=== PATIENT | female | born 1985 | race Caucasian/White ===

== ENCOUNTER 2017-05-27 22:52 | Emergency (ER) | payer MEDICAID ==
[~2017-05-27] VITALS: Ht 157.5 cm; Wt 42.0 kg
[2017-05-27 22:58] VITALS: BP 120/72
[2017-05-27] MEDS ORDERED: MUPI22OI30 TOP (23:09)
[2017-05-27] MEDS ORDERED: SULF1TAB49 PO (23:09)
== END 2017-05-27 23:14 | disposition home or self-care (01) ==
LOC: ER 22:53
DX: L02.212 Cutaneous abscess of back [any part, except buttock and flank] (principal); L03.312 Cellulitis of back [any part except buttock and flank]; Z56.0 Unemployment, unspecified; Z79.899 Other long term (current) drug therapy; Z86.19 Personal history of other infectious and parasitic diseases
CPT/HCPCS: 99283

== ENCOUNTER 2017-07-26 20:50 | Emergency (ER) | payer MEDICAID ==
[~2017-07-26] VITALS: Ht 157.5 cm; Wt 43.6 kg
[2017-07-26 20:59] VITALS: BP 124/106
[2017-07-26] MEDS ORDERED: ketorolac trometh inj. 60 MG/2 ML VIAL IM ONE (21:25)
[2017-07-26] MEDS ORDERED: proCHLORperazine 10mg tablet PO ONE (21:25)
[2017-07-26] MEDS ORDERED: aspirin 325mg tablet PO ONE (21:25)
[2017-07-26] MEDS ORDERED: acetaminophen 325mg tablet PO ONE (21:25)
[2017-07-26] MEDS ORDERED: AMOX500C2 PO (21:29)
[2017-07-26] MEDS ORDERED: amoxicillin 250mg capsule PO ONE (21:30)
== END 2017-07-26 21:50 | disposition home or self-care (01) ==
LOC: ER 20:51
DX: H66.92 Otitis media, unspecified, left ear (principal); Z56.0 Unemployment, unspecified; Z79.899 Other long term (current) drug therapy
CPT/HCPCS: 96372; 99284; J1885; Q0164

== ENCOUNTER 2017-11-08 03:39 | Emergency (ER) | payer MEDICAID ==
[~2017-11-08] VITALS: Ht 157.5 cm; Wt 44.1 kg
[2017-11-08] MEDS ORDERED: SULF1TAB49 PO (03:57)
[2017-11-08] MEDS ORDERED: CEPH500C5 PO (03:57)
[2017-11-08 04:12] VITALS: BP 124/68
== END 2017-11-08 04:15 | disposition home or self-care (01) ==
LOC: ER 03:42
DX: L03.221 Cellulitis of neck (principal); Z56.0 Unemployment, unspecified; Z79.2 Long term (current) use of antibiotics
CPT/HCPCS: 99283

== ENCOUNTER 2018-07-05 15:04 | Emergency (ER) | payer MEDICAID ==
[~2018-07-05] VITALS: Ht 157.5 cm; Wt 40.0 kg
[~2018-07-05 15:04] MED LIST: CEPH500C5 PO
[2018-07-05 15:14] VITALS: BP 126/82
[2018-07-05] MEDS ORDERED: LIDOcaine 1% w/epiNEPHrine 1:200,000 30ml vial IM ONE (16:00)
[2018-07-05] MEDS ORDERED: TETanus/Pertussis (Acell)/Diphther VAC/PF (Tdap-Adult) 0.5ml syringe IM ONE (16:00)
[2018-07-05] MEDS ORDERED: CEPH-572 PO (16:20)
[2018-07-05] MEDS ORDERED: SULF1TAB49 PO (16:20)
== END 2018-07-05 16:28 | disposition home or self-care (01) ==
LOC: ER 15:05
DX: L02.212 Cutaneous abscess of back [any part, except buttock and flank] (principal); R10.32 Left lower quadrant pain; Z56.0 Unemployment, unspecified; Z86.14 Personal history of Methicillin resistant Staphylococcus aureus infection
CPT/HCPCS: 10060; 90471; 90715; 99283

== ENCOUNTER 2018-07-26 20:07 | Emergency (ER) | payer MEDICAID ==
[~2018-07-26] VITALS: Ht 157.5 cm; Wt 38.1 kg
[2018-07-26 20:28] VITALS: BP 149/96
[2018-07-26 20:51] LABS: CLARITY,URINE CLOUDY (Clear); COLOR,URINE YELLOW (Yellow); GLUCOSE, URINE NEGATIVE (Neg); KETONES,URINE NEGATIVE (Neg); LEUKOCYTE ESTERASE ,URINE SMALL (Neg); NITRITES, URINE NEGATIVE (Neg); OCCULT BLOOD,URINE LARGE (Neg); PROTEIN,URINE 100 mg/dl (Neg)
[2018-07-26 20:52] LABS: URINE HCG NEGATIVE (NEG)
[2018-07-26 20:58] LABS: UA COLLECTION TYPE CLN CATCH MIDSTREAM
[2018-07-26 21:00] LABS: BACTERIA,URINE FEW /HPF (Neg); RBC,URINE 50-100 /HPF (0-2); SQUAMOUS EPITHELIAL CELL,UR FEW /LPF (FEW)
[2018-07-26] MEDS ORDERED: NITR100C PO (21:02)
[2018-07-26] MEDS ORDERED: PHEN-824 PO (21:02)
== END 2018-07-26 21:18 | disposition home or self-care (01) ==
LOC: ER 20:08
DX: N39.0 Urinary tract infection, site not specified (principal); Z56.0 Unemployment, unspecified
CPT/HCPCS: 81001; 81025; 87077; 87088; 87186; 99283

== ENCOUNTER 2019-10-02 14:42 | Emergency (ER) | payer MEDICAID ==
[~2019-10-02] VITALS: Ht 157.5 cm; Wt 41.9 kg
[~2019-10-02 14:42] MED LIST changes: -CEPH500C5 PO; +NITR100C PO; +PHEN-824 PO
[2019-10-02 14:51] VITALS: BP 115/80
[2019-10-02] MEDS ORDERED: CEPH250T PO (15:47)
== END 2019-10-02 16:07 | disposition home or self-care (01) ==
LOC: ER 14:42
DX: L72.0 Epidermal cyst (principal); Z86.14 Personal history of Methicillin resistant Staphylococcus aureus infection; Z72.89 Other problems related to lifestyle; Z56.0 Unemployment, unspecified; Z79.899 Other long term (current) drug therapy
CPT/HCPCS: 99283

== ENCOUNTER 2021-01-06 16:06 | Emergency (ER) | payer MEDICAID ==
[~2021-01-06] VITALS: Ht 157.5 cm; Wt 38.6 kg
[2021-01-06 16:36] VITALS: BP 116/79
[2021-01-06] MEDS ORDERED: acetaminophen 325mg tablet PO ONE (17:10)
[2021-01-06 17:55] LABS: BASOPHILS % (AUTO) 0.2 % (0-1); EOSINOPHILS % (AUTO) 0 % (0-6); HEMATOCRIT 37.2 % (35.0-45.0); HEMOGLOBIN 12.6 g/dl (12.0-16.0); LYMPHOCYTES # (AUTO) 0.9 X10'3 (1.1-4.8); LYMPHOCYTES % (AUTO) 7.6 % (21-51); MEAN CORPUSCULAR VOLUME 91.2 FL (78-98); MEAN PLATELET VOLUME 6.8 FL (7.4-10.4); MONOCYTES # (AUTO) 0.7 X10'3 (0-0.9); MONOCYTES % (AUTO) 5.7 % (2-12); NEUTROPHILS % (AUTO) 86.5 % (42-75); PLATELET COUNT 445 X10'3 (140-440); RED BLOOD COUNT 4.08 X10'6 (4.20-5.60); RED CELL DISTRIBUTION WIDTH 12.8 % (11.5-14.5); WHITE BLOOD COUNT 11.6 X10'3 (4.5-11.0)
[2021-01-06 17:57] LABS: CLARITY,URINE CLOUDY (Clear); COLOR,URINE YELLOW (Yellow); GLUCOSE, URINE NEGATIVE (Neg); KETONES,URINE NEGATIVE (Neg); LEUKOCYTE ESTERASE ,URINE TRACE (Neg); NITRITES, URINE POSITIVE (Neg); OCCULT BLOOD,URINE NEGATIVE (Neg); PROTEIN,URINE TRACE mg/dl (Neg); UA COLLECTION TYPE CLN CATCH MIDSTREAM
[2021-01-06] MEDS ORDERED: CEPH250T PO (18:01)
[2021-01-06 18:02] LABS: BACTERIA,URINE 3+ /HPF (Neg); SQUAMOUS EPITHELIAL CELL,UR MODERATE /LPF (FEW)
[2021-01-06 18:03] LABS: MUCUS STRANDS FEW /LPF (Neg); RBC,URINE 0-2 /HPF (0-2); WBC CLUMPS,URINE FEW /HPF (NEGATIVE)
[2021-01-06 18:08] LABS: ALANINE AMINOTRANSFERASE 17 U/L (12-78); ALBUMIN 3.7 G/DL (3.4-5.0); ALBUMIN/GLOBULIN RATIO 0.8 (1.1-1.5); ALKALINE PHOSPHATASE 80 IU/L (46-116); ANION GAP 11 (8-16); ASPARTATE AMINO TRANSFERASE 16 U/L (10-37); BILIRUBIN,TOTAL 0.8 MG/DL (0.1-1.0); BLOOD UREA NITROGEN 8 MG/DL (7-18); BUN/CREATININE RATIO 8.5 (6.6-38.0); CALCIUM 8.8 MG/DL (8.5-10.1); CHLORIDE 99 MMOL/L (99-107); CREATININE 0.94 MG/DL (0.40-0.90); GLUCOSE 87 MG/DL (70-104); POTASSIUM 3.8 MMOL/L (3.5-5.1); SODIUM 135 MMOL/L (135-145); TOTAL CARBON DIOXIDE 25.1 MMOL/L (24-32); TOTAL PROTEIN 8.6 G/DL (6.4-8.2); eGFR 67 ML/MIN
== END 2021-01-06 18:07 | disposition home or self-care (01) ==
LOC: ER 16:07
DX: N39.0 Urinary tract infection, site not specified (principal); R10.13 Epigastric pain; R10.31 Right lower quadrant pain; R50.9 Fever, unspecified; R52 Pain, unspecified; Z86.14 Personal history of Methicillin resistant Staphylococcus aureus infection; Z72.89 Other problems related to lifestyle; Z56.0 Unemployment, unspecified; Z79.2 Long term (current) use of antibiotics; Z79.899 Other long term (current) drug therapy
CPT/HCPCS: 36415; 76770; 76830; 76856; 80053; 81001; 85025; 87077; 87088; 87186; 93976; 99285

== ENCOUNTER 2021-09-08 10:16 | Emergency (ER) | payer MEDICAID ==
[~2021-09-08] VITALS: Ht 157.5 cm; Wt 40.9 kg
[2021-09-08 10:29] VITALS: BP 136/84
--- NOTE | 2021-09-08 12:59 | NUR ---
DRESSING APPLIED TO LAC REPAIR LT WRIST
== END 2021-09-08 13:17 | disposition home or self-care (01) ==
LOC: ER 10:17
DX: S61.512A Laceration without foreign body of left wrist, initial encounter (principal); W45.8XXA Other foreign body or object entering through skin, initial encounter; Y93.89 Activity, other specified; Y92.89 Other specified places as the place of occurrence of the external cause; Y99.8 Other external cause status
CPT/HCPCS: 12002; 99282

== ENCOUNTER 2022-03-31 01:30 | Inpatient (IN) | payer MEDICAID ==
[~2022-03-31] VITALS: Ht 157.5 cm; Wt 45.8 kg
[2022-03-31] MEDS ORDERED: normal saline 1000ML IV soln IV ONE (01:50)
[2022-03-31] MEDS ORDERED: acetaminophen 325mg tablet PO ONE (02:00)
[2022-03-31] MEDS ORDERED: ibuprofen tablet 400 MG TABLET PO ONE (02:00)
[2022-03-31] MEDS ORDERED: ceFAZolin 1GM/D5W- ADD-VANTAGE 50 ML IV ONE (02:25)
[2022-03-31] MEDS ORDERED: CefTRIAXone/D5W-Rocephin 1gm 50 ML IV ONE (02:45)
[2022-03-31 02:48] LABS: BASOPHILS % (AUTO) 0.1 % (0-1); EOSINOPHILS % (AUTO) 0 % (0-6); HEMATOCRIT 39.5 % (35.0-45.0); HEMOGLOBIN 13.1 g/dl (12.0-16.0); LYMPHOCYTES # (AUTO) 0.5 X10'3 (1.1-4.8); LYMPHOCYTES % (AUTO) 2.3 % (21-51); MEAN CORPUSCULAR HEMOGLOBIN 31.2 PG (27.0-31.0); MEAN CORPUSCULAR HGB CONC 33.3 g/dL (33.0-36.5); MEAN CORPUSCULAR VOLUME 93.9 FL (78-98); MEAN PLATELET VOLUME 6.5 FL (7.4-10.4); MONOCYTES # (AUTO) 0.6 X10'3 (0-0.9); MONOCYTES % (AUTO) 2.6 % (2-12); NEUTROPHILS # (AUTO) 20.7 X10'3 (1.8-7.7); PLATELET COUNT 363 X10'3 (140-440); RED BLOOD COUNT 4.21 X10'6 (4.20-5.60); RED CELL DISTRIBUTION WIDTH 12.6 % (11.5-14.5); WHITE BLOOD COUNT 21.8 X10'3 (4.5-11.0)
[2022-03-31 02:59] LABS: D-DIMER 0.55 MG/L FEU (0-0.50)
[2022-03-31] MEDS ORDERED: DOXYCYCLINE 100MG CAPSULE PO STA (03:03)
[2022-03-31 03:04] LABS: ALANINE AMINOTRANSFERASE 16 U/L (12-78); ALBUMIN 3.2 G/DL (3.4-5.0); ALBUMIN/GLOBULIN RATIO 0.7 (1.1-1.5); ALKALINE PHOSPHATASE 69 IU/L (46-116); ANION GAP 12 (8-16); ASPARTATE AMINO TRANSFERASE 22 U/L (10-37); BILIRUBIN,TOTAL 0.7 MG/DL (0.1-1.0); BLOOD UREA NITROGEN 14 MG/DL (7-18); BUN/CREATININE RATIO 12.7 (6.6-38.0); CALCIUM 8.9 MG/DL (8.5-10.1); CHLORIDE 99 MMOL/L (99-107); GLUCOSE 113 MG/DL (70-104); POTASSIUM 3.8 MMOL/L (3.5-5.1); SODIUM 132 MMOL/L (135-145); TOTAL CARBON DIOXIDE 21.5 MMOL/L (24-32); TOTAL PROTEIN 7.5 G/DL (6.4-8.2); eGFR 56 ML/MIN
[2022-03-31 03:13] LABS: ETHANOL < 0.010 GM/DL (0.0-0.010); MAGNESIUM 1.7 MG/DL (1.5-2.4)
[2022-03-31 03:25] LABS: PLATELET ESTIMATE NORMAL; TOTAL CELLS COUNTED 100
--- NOTE | 2022-03-31 03:45 | NUR ---
NOTIFIED REGARDING HIGH TEMP. NO NEW ORDERS RECIEVED YET
[2022-03-31] MEDS ORDERED: iohexol 350MG/ML 100ml bottle IV ONE (03:47)
[2022-03-31] MEDS ORDERED: mag hydrox/Alum hydrox/simeth 30ml oral suspension PO PRN (04:50)
[2022-03-31] MEDS ORDERED: morphine 2 MG/ML inj. syringe IV PRN ×2 (04:50)
[2022-03-31] MEDS ORDERED: magnesium hydroxide 30ml (MOM) UD suspension PO PRN (04:50)
[2022-03-31] MEDS ORDERED: acetaminophen 325mg tablet PO PRN ×2 (04:50)
[2022-03-31] MEDS ORDERED: HYDROcodone/acetaminophen 5mg/325mg tablet PO PRN (04:50)
[2022-03-31] MEDS ORDERED: ondansetron/PF 4mg/2ml inj IV PRN (04:50)
[2022-03-31] MEDS ORDERED: HYDROcodone/acetaminophen 10/325mg tab PO PRN (04:50)
[2022-03-31] MEDS: normal saline 1000ml 1,000 ML IV SCH ×3 (05:07→17:54)
[2022-03-31] MEDS: CefTRIAXone/D5W-Rocephin 1gm 50 ML IV SCH (07:27)
[2022-03-31 07:31] LABS: URINE HCG NEGATIVE (NEG)
[2022-03-31 07:33] LABS: CLARITY,URINE SLIGHTLY CLOUDY (Clear); COLOR,URINE YELLOW (Yellow); GLUCOSE, URINE NEGATIVE (Neg); KETONES,URINE NEGATIVE (Neg); LEUKOCYTE ESTERASE ,URINE NEGATIVE (Neg); NITRITES, URINE POSITIVE (Neg); OCCULT BLOOD,URINE LARGE (Neg); PH,URINE 5.5 (4.8-8.0); PROTEIN,URINE NEGATIVE (Neg)
[2022-03-31 07:34] LABS: UA COLLECTION TYPE CLN CATCH MIDSTREAM
[2022-03-31 07:40] LABS: RBC,URINE 50-100 /HPF (0-2); WBC,URINE 0-4 /HPF (0-4)
[2022-03-31 07:41] LABS: BACTERIA,URINE FEW /HPF (Neg); MUCUS STRANDS NONE SEEN /LPF (Neg); SQUAMOUS EPITHELIAL CELL,UR FEW /LPF (FEW)
[2022-03-31 07:43] LABS: URINE AMPHETAMINE SCREEN POSITIVE (Neg); URINE BARBITUATE SCREEN NEGATIVE (Neg); URINE BENZODIAZEPINES SCREEN NEGATIVE (Neg); URINE CANNABINOID SCREEN NEGATIVE (Neg); URINE COCAINE SCREEN NEGATIVE (Neg); URINE METHADONE SCREEN NEGATIVE (Neg); URINE OPIATE SCREEN NEGATIVE (Neg); URINE PHENCYCLIDINE SCREEN NEGATIVE (Neg)
[2022-03-31] MEDS ORDERED: PERFLUTREN PROTEIN-A MICROSPHR (Optison) 0.22 MG/ML 3ML VIAL IV ONE (07:45)
[2022-03-31] MEDS: azithromycin/NS 500mg/250ml 250 ML IV SCH (08:00)
[2022-03-31 08:20] VITALS: BP 90/53
--- NOTE | 2022-03-31 08:39 | NUR ---
Patient in [facility] [id number] . I have received report from jA OWENS and had the opportunity to ask questions and assume patient care. settled pt into room. two car keys found in [place] bunch. Pt requesting pain med "shot". states she doesn't think ER really gave it to her. Reassured pt it in fact had been given. Pt c/o pain 02/13 in lung area. reassured pt that I would give pain meds when time appropriate. Addendum: 03/31/22 at 0849 by Yael Beaver RN Amended: Links added.
--- NOTE | 2022-03-31 09:01 | NUR ---
Pt sleeping no distress, Call light in reach.
[2022-03-31] MEDS: docusate sod 100mg capsule PO SCH ×2 (09:32→20:00)
[2022-03-31] MEDS: enoxaparin 40mg/0.4ml syringe SUBCUT SCH (09:33)
[2022-03-31 11:19] VITALS: BP 90/60
[2022-03-31] MEDS ORDERED: NO HOME MEDS (12:09)
--- NOTE | 2022-03-31 15:13 | NUR ---
male visitor at bedside. pt call light in reach
[2022-03-31 15:22] VITALS: BP_SYST 83; BP_SYST 99; BP_DIAS 45; BP_DIAS 60
--- NOTE | 2022-03-31 17:23 | NUR ---
MESSAGE: [id number] Maegan She is requesting pain reliever tylenol #3, She states norco makes her nauseas and morphine makes her angry Yael Nadya
[2022-03-31] MEDS ORDERED: acetaminophen w/codeine (30MG) #3 tablet PO PRN ×2 (18:10)
--- NOTE | 2022-03-31 18:27 | NUR ---
Problems reprioritized. Patient report given, questions answered & plan of care reviewed with Cesilia OWENS. Tylenol #3 given for lung pain. Pt upset over her uncle seen outside the hospital window. she wanted to give her car keys to him so he could go home. She went so far as to say she would leave AMA. I stated I could have a PCT run them out. Uncle was just picked up and pt apologized for her passionate behavior and is now settled down. call light in reach
[2022-03-31] MEDS ORDERED: temazepam 15mg capsule PO ONE (22:05)
[2022-04-01] MEDS: normal saline 1000ml 1,000 ML IV SCH (04:28)
[2022-04-01 06:00] VITALS: BP 99/51
--- NOTE | 2022-04-01 06:14 | NUR ---
Patient in room PCU 3017. I have received report from Cesilia OWENS and had the opportunity to ask questions and assume patient care. Bedside report completed. Pt sleeping no distress. Call light in reach. Addendum: 04/01/22 at 0616 by Yael Beaver RN Amended: Links added.
[2022-04-01 07:04] LABS: BASOPHILS # (AUTO) 0.1 X10'3 (0-0.2); BASOPHILS % (AUTO) 0.3 % (0-1); EOSINOPHILS # (AUTO) 0.1 X10'3 (0-0.9); EOSINOPHILS % (AUTO) 0.7 % (0-6); HEMATOCRIT 36.2 % (35.0-45.0); HEMOGLOBIN 12.1 g/dl (12.0-16.0); LYMPHOCYTES # (AUTO) 1.4 X10'3 (1.1-4.8); LYMPHOCYTES % (AUTO) 7.7 % (21-51); MEAN CORPUSCULAR HEMOGLOBIN 31.3 PG (27.0-31.0); MEAN CORPUSCULAR HGB CONC 33.4 g/dL (33.0-36.5); MEAN CORPUSCULAR VOLUME 93.9 FL (78-98); MEAN PLATELET VOLUME 7.1 FL (7.4-10.4); MONOCYTES # (AUTO) 0.5 X10'3 (0-0.9); MONOCYTES % (AUTO) 3.1 % (2-12); NEUTROPHILS # (AUTO) 15.5 X10'3 (1.8-7.7); NEUTROPHILS % (AUTO) 88.2 % (42-75); PLATELET COUNT 300 X10'3 (140-440); RED BLOOD COUNT 3.86 X10'6 (4.20-5.60); RED CELL DISTRIBUTION WIDTH 12.8 % (11.5-14.5); WHITE BLOOD COUNT 17.6 X10'3 (4.5-11.0)
--- NOTE | 2022-04-01 08:00 | NUR ---
No PIV access as Pt removed her PIV last Noc. I attempted x 2, no luck. Total of 15 attemps thus far. Will contact Nursing Fermenting Cellars Supervisor.
[2022-04-01 08:04] LABS: ANION GAP 8 (8-16); BLOOD UREA NITROGEN 11 MG/DL (7-18); BUN/CREATININE RATIO 14.5 (6.6-38.0); CALCIUM 7.8 MG/DL (8.5-10.1); CHLORIDE 110 MMOL/L (99-107); CREATININE 0.76 MG/DL (0.40-0.90); GLUCOSE 83 MG/DL (70-104); POTASSIUM 3.5 MMOL/L (3.5-5.1); SODIUM 140 MMOL/L (135-145); TOTAL CARBON DIOXIDE 21.8 MMOL/L (24-32); eGFR 86 ML/MIN
--- NOTE | 2022-04-01 08:20 | NUR ---
Nurse Cafe Or Restaurant Manager @ bedside. Attempted PIV. No access established.
--- NOTE | 2022-04-01 08:43 | NUR ---
MESSAGE: [id number] Maegan Sepsis, PNA . We can not get IV access on her. over 17 attempts thus far. She has order for NS @150/hr and IV ABX x 2. Yael HUGHES
[2022-04-01] MEDS: docusate sod 100mg capsule PO SCH (09:12)
[2022-04-01] MEDS: enoxaparin 40mg/0.4ml syringe SUBCUT SCH (09:12)
[2022-04-01] MEDS: CefTRIAXone/D5W-Rocephin 1gm 50 ML IV SCH (09:29)
[2022-04-01] MEDS: azithromycin/NS 500mg/250ml 250 ML IV SCH (09:29)
--- NOTE | 2022-04-01 09:30 | NUR ---
ER residential concierge came to bedside and placed PIV in right upper arm.
--- NOTE | 2022-04-01 10:25 | NUR ---
MESSAGE: 1050D Maegan left AMA escorted by Security. Yael HUGHES
--- NOTE | 2022-04-01 10:39 | NUR ---
Events leading up to AMA event... Pt somnolent IV ABX infusing. resting quietly. Boyfriend Alejandro came to bedside. Pt woke up and began yelling belligerently at boyfriend. ( this same thing happened last noc. But then boyfriend was on telephone. Last noc security had to be called to bedside as Pt escalated quickly into hysteria.) I went to bedside. Pt began yelling at me, stating that I purposely put her home jello in the windowsill to ruin it. I tried to tell her it was not me. She continue to yell, now including profanity. i called security. Security came to bedside and Pt stated she wanted to leave AMA. I provided the AMA form which she signed. I removed PIV. I asked her 3 times during this if it was what she really wanted. Indeed it was. Pt left hospital under own power accompanied by Boyfriend and security.
== END 2022-04-01 10:31 | disposition left against medical advice (07) | DRG 720 ==
LOC: ER 01:31 → ED HOLD 04:51 → PCU 3S 08:58
PROVIDERS: ADMIT Internal Medicine; ATTEND Family Medicine
PROC: B32T1ZZ Computerized Tomography (CT Scan) of Left Pulmonary Artery using Low Osmolar Contrast (ICD-10-PCS; principal; 2022-03-31)
PROC: B3201ZZ Computerized Tomography (CT Scan) of Thoracic Aorta using Low Osmolar Contrast (ICD-10-PCS; 2022-03-31)
PROC: B32S1ZZ Computerized Tomography (CT Scan) of Right Pulmonary Artery using Low Osmolar Contrast (ICD-10-PCS; 2022-03-31)
DX: A41.9 Sepsis, unspecified organism (principal); I47.20 Ventricular tachycardia, unspecified; R64 Cachexia; Z53.29 Procedure and treatment not carried out because of patient's decision for other reasons; J18.9 Pneumonia, unspecified organism; I49.9 Cardiac arrhythmia, unspecified; Z20.822 Contact with and (suspected) exposure to COVID-19; Z56.0 Unemployment, unspecified; Z68.1 Body mass index [BMI] 19.9 or less, adult
CPT/HCPCS: 36415; 71045; 71275; 80048; 80053; 80305; 80320; 81001; 81025; 83605; 83735; 84145; 84443; 84484; 85007; 85025; 85379; 87040; 87081; 87088; 87502; 87503; 87635; 93005; 96365; 99285; C9803; G0378; J0456; J0696; J1650; J2270; J3490; J7030; Q9967

== ENCOUNTER 2023-02-06 13:15 | Emergency (ER) | payer MEDICAID ==
[~2023-02-06] VITALS: Ht 157.5 cm; Wt 43.0 kg
[~2023-02-06 13:15] MED LIST changes: -NITR100C PO; +NO HOME MEDS; -PHEN-824 PO
[2023-02-06 13:18] VITALS: BP 146/89; PULSE 120; RESP 16; O2SAT 100
[2023-02-06] MEDS ORDERED: NEOM10SO7 RIGHT EAR (15:44)
[2023-02-06 15:58] VITALS: TEMP 97.7
== END 2023-02-06 15:59 | disposition home or self-care (01) ==
LOC: ER 13:15
DX: H60.91 Unspecified otitis externa, right ear (principal); Z86.14 Personal history of Methicillin resistant Staphylococcus aureus infection; Z72.89 Other problems related to lifestyle; Z56.0 Unemployment, unspecified; Z79.2 Long term (current) use of antibiotics; Z79.899 Other long term (current) drug therapy
CPT/HCPCS: 99283

== ENCOUNTER 2023-02-09 05:21 | Emergency (ER) | payer MEDICAID ==
[~2023-02-09] VITALS: Ht 157.5 cm; Wt 42.3 kg
[~2023-02-09 05:21] MED LIST changes: +NEOM10SO7 RIGHT EAR
[2023-02-09 05:55] VITALS: BP 128/102; PULSE 84; RESP 16; TEMP 98.1; O2SAT 100
[2023-02-09] MEDS ORDERED: Cipro HC otic suspension 10ML bottle EACH EAR SCH (08:00)
== END 2023-02-09 07:18 | disposition home or self-care (01) ==
LOC: ER 05:22
DX: H60.91 Unspecified otitis externa, right ear (principal); Z79.899 Other long term (current) drug therapy
CPT/HCPCS: 99282

== ENCOUNTER 2023-10-13 20:44 | Emergency (ER) | payer MEDICAID ==
[~2023-10-13] VITALS: Ht 157.5 cm; Wt 44.5 kg
[2023-10-13] MEDS ORDERED: AMOX-117 PO (21:28)
[2023-10-13] MEDS: HYDROcodone/acetaminophen 5mg/325mg tablet PO ONE (23:00)
[2023-10-13] MEDS: ondansetron 4mg rapidly disintigrating tab PO ONE (23:00)
[2023-10-14 00:32] VITALS: BP 136/78; PULSE 80; RESP 16; TEMP 98.3; O2SAT 100
== END 2023-10-14 00:34 | disposition home or self-care (01) ==
LOC: ER 20:44
DX: K04.7 Periapical abscess without sinus (principal); Z72.89 Other problems related to lifestyle; Z56.0 Unemployment, unspecified; Z79.2 Long term (current) use of antibiotics; Z79.899 Other long term (current) drug therapy
CPT/HCPCS: 99283

== ENCOUNTER 2023-12-15 21:00 | Emergency (ER) | payer MEDICAID ==
[~2023-12-15] VITALS: Ht 157.5 cm; Wt 43.5 kg
[2023-12-15] MEDS ORDERED: SULF-14 PO (21:53)
[2023-12-15] MEDS ORDERED: CEPH-585 PO (21:53)
[2023-12-15] MEDS ORDERED: sulfamethoxazole/trimethoprim SS (400mg/80mg) tab (single-strength) PO SCH (22:20)
[2023-12-15] MEDS: cephalexin 250mg capsule PO ONE (22:25)
[2023-12-15] MEDS: sulfamethoxazole/trimethoprim DS (800/160mg) tablet PO ONE ×3 (22:25→22:26)
[2023-12-15 22:28] VITALS: BP 122/68; PULSE 88; RESP 17; TEMP 98.2; O2SAT 99
== END 2023-12-15 22:29 | disposition home or self-care (01) ==
LOC: ER 21:01
DX: L02.11 Cutaneous abscess of neck (principal); Z79.2 Long term (current) use of antibiotics
CPT/HCPCS: 99283

== ENCOUNTER 2024-04-07 06:32 | Emergency (ER) | payer MEDICAID, OTHER ==
[~2024-04-07] VITALS: Ht 157.5 cm; Wt 41.8 kg
[~2024-04-07 06:32] MED LIST changes: +CEPH-585 PO
[2024-04-07 06:37] VITALS: BP 166/94; PULSE 80; RESP 18; TEMP 97.6; O2SAT 100
[2024-04-08] MEDS ORDERED: CEPH-585 PO (05:18)
== END 2024-04-07 11:04 | disposition left against medical advice (07) ==
LOC: ER 06:32
DX: L02.11 Cutaneous abscess of neck (principal); Z53.21 Procedure and treatment not carried out due to patient leaving prior to being seen by health care provider

== ENCOUNTER 2024-04-08 04:21 | Emergency (ER) | payer MEDICAID ==
[~2024-04-08] VITALS: Ht 157.5 cm; Wt 41.8 kg
[2024-04-08] MEDS ORDERED: CEPH-585 PO (05:18)
[2024-04-08 05:23] VITALS: BP 142/92; PULSE 86; RESP 16; TEMP 98.4; O2SAT 100
[2024-04-08] MEDS: cephalexin 250mg capsule PO ONE (05:28)
== END 2024-04-08 05:30 | disposition home or self-care (01) ==
LOC: ER 04:22
DX: L03.221 Cellulitis of neck (principal)
CPT/HCPCS: 99283

== ENCOUNTER 2024-04-14 00:36 | Emergency (ER) | payer MEDICAID ==
[~2024-04-14] VITALS: Ht 157.5 cm; Wt 43.2 kg
[2024-04-14] MEDS ORDERED: SULF1TAB49 PO (01:49)
[2024-04-14] MEDS: sulfamethoxazole/trimethoprim DS (800/160mg) tablet PO ONE ×2 (02:00→02:01)
[2024-04-14 02:13] VITALS: BP 125/87; PULSE 85; RESP 16; TEMP 98.7; O2SAT 98
== END 2024-04-14 02:15 | disposition home or self-care (01) ==
LOC: ER 00:36
DX: L03.211 Cellulitis of face (principal)
CPT/HCPCS: 99283

== ENCOUNTER 2024-08-20 20:18 | Emergency (ER) | payer MEDICAID ==
[~2024-08-20] VITALS: Ht 157.5 cm; Wt 43.7 kg
[2024-08-20 20:23] VITALS: BP 106/62; PULSE 85; RESP 15; TEMP 97.8; O2SAT 100
== END 2024-08-20 21:11 | disposition left against medical advice (07) ==
LOC: ER 20:18
DX: K08.89 Other specified disorders of teeth and supporting structures (principal); Z53.21 Procedure and treatment not carried out due to patient leaving prior to being seen by health care provider

== ENCOUNTER 2024-08-22 21:03 | Emergency (ER) | payer MEDICAID ==
[~2024-08-22] VITALS: Ht 157.5 cm; Wt 48.1 kg
[2024-08-22 21:13] VITALS: BP 121/74; PULSE 80; RESP 16; O2SAT 99
[2024-08-22] MEDS ORDERED: dextrose 5%-lactated ringers 1,000 ML IV ONE (22:25)
[2024-08-22] MEDS ORDERED: AMOX-117 PO (22:35)
[2024-08-22 22:38] VITALS: TEMP 97.9
== END 2024-08-22 22:43 | disposition home or self-care (01) ==
LOC: ER 21:04
DX: K04.7 Periapical abscess without sinus (principal); Z79.899 Other long term (current) drug therapy; Z56.0 Unemployment, unspecified; Z72.89 Other problems related to lifestyle
CPT/HCPCS: 99283

== ENCOUNTER 2024-08-25 21:48 | Emergency (ER) | payer MEDICAID ==
[~2024-08-25] VITALS: Ht 157.5 cm; Wt 47.3 kg
[~2024-08-25 21:48] MED LIST changes: +AMOX-117 PO
[2024-08-25] MEDS ORDERED: METH-798 PO (22:27)
[2024-08-25 22:28] VITALS: O2SAT 100
[2024-08-25] MEDS: ketorolac trometh 15mg/ml vial 15 MG/ML ML IM ONE (22:36)
[2024-08-25 23:16] VITALS: BP 124/80; PULSE 80; RESP 16; TEMP 97.6
== END 2024-08-25 23:25 | disposition home or self-care (01) ==
LOC: ER 21:49
DX: Z04.1 Encounter for examination and observation following transport accident (principal)
CPT/HCPCS: 96372; 99283; J1885

== ENCOUNTER 2025-01-02 13:08 | Emergency (ER) | payer MEDICAID ==
[~2025-01-02] VITALS: Ht 157.5 cm; Wt 44.7 kg
[~2025-01-02 13:08] MED LIST changes: -AMOX-117 PO; -CEPH-585 PO; +METH-798 PO
[2025-01-02 13:17] VITALS: BP 157/85; PULSE 111; RESP 16; TEMP 98.3; O2SAT 98
[2025-01-02] MEDS ORDERED: ERYT1OIN6 LEFTEYE (14:12)
--- NOTE | 2025-01-02 14:13 | Physician Documentation ---
History of Present Illness ~ Chief Complaint: Eye Pain Stated Complaint: EYE SWELLING Time Seen by MD: 13:28 OK to notify your PCP?: Yes Primary Medical Doctor: [facility] Source: patient Mode of Arrival: POV Exam Limitations: no limitations HPI 39-year-old female with chief complaint left upper eyelid swelling which she states she woke up with today. She does not wear contact lenses. She states that the area is sore to the touch. She denies any vision changes, drainage from her eye. She denies fever, chills, headache. She denies itching. Medication Reconciliation Allergies: Coded Allergies: No Known Allergies (Unverified , 08/22/24) Scheduled Methocarbamol (Methocarbamol), 1 TAB PO Q8H Neomy Sulf/Polymyx B Sulf/Hc (Cortisporin Otic Solution), 4 DROP RIGHT EAR Q6H Miscellaneous Medications Home Med List (No Home Medications), (Reported) Past Medical History Past Medical History: *ENT*, Arrhythmia, Cellulitis, MRSA Abscess Past Surgical History: no surgical history Alcohol Use: Occasionally Drug Use: none Lives with: S/O Lives In: Home Occupation: unemployed Review of Systems All Other Systems at this time: Reviewed and Negative Physical Exam Vital Signs: Temperature: 98.3, Source: Temporal, Heart Rate: 111, Respiratory Rate: 16, BP: 157/85, Pulse Oximetry: 98, Weight: 44.700 Oxygen Flow Rate: 0 Physical Exam General Appearance: Alert, WD/WN. NAD. HEENT: NCAT, PERRL, EOMI. Left upper eyelid at the rim of the eyelid there is a defined area of erythema with mild edema, bulbar conjunctiva is clear no increa sed injection or tearing. Left lower eyelid is normal. Right upper and lower eyelids normal. Right bulbar conjunctiva clear. Neck: Supple, trachea midline. Cardiovascular: RRR. No m/r/g. Lungs: CTAB. Breathing unlabored Extremities: Normal inspection. No edema. Skin: Warm/dry, normal color Neurological: Alert and oriented x4, normal gait. Psychiatric: Affect congruent with mood. Progress Results/Orders Results/Orders Vital Signs 01/02/25 13:17 Temp 98.3 Pulse 111 Resp 16 B/P (MAP) 157/85 Pulse Ox 98 O2 Flow Rate 0 Medical Decision Making Eye Diff. Dx: Considerations: Include: [place], Conjuctivits-allergic, Conjuctivitis-bacterial, Conjuctivits-chlamydial, Conjuctivitis-viral, Corneal abrasion, Corneal laceration, Corneal ulceration, Foreign body-conjuctiva, Foreign body-corneal, Foreign body-intraocular, Foreign body-lid, Glaucoma, Globe rupture, Hordeolum, Iritis, Orbital cellulitis, Periobital cellulitis, Retinal artery occulsion, Retinal vein occlusion, Rust ring, Subconjunctival hem, Ultraviolet keratitis, Uveitis, Vitreous hemorrhage Departure Time of Disposition: 14:11 Disposition: 01 HOME / SELF CARE / HOMELESS Impression: Primary Impression: Hordeolum externum left upper eyelid Condition: Stable Discharge Instructions: Sty Additional Instructions: Warm compresses to area of redness, erythromycin ointment prescribed Referrals: NO PRIMARY CARE PROVIDER (PCP) Prescriptions Erythromycin Base Opth. Ointment* (Erythromycin Opth. Ointment*) 1 Gm Tube 1 APPLIC LEFTEYE Q6HWA for 7 Days, #1 EACH Prov: KAYLIN DAVENPORT 01/02/25 Education Educated: Patient Educated regarding: diagnosis, treatment, need for follow up Signature Scribe Signature: x Attestation: KAYLIN Castillo Jan 02, 2025 14:13
== END 2025-01-02 14:25 | disposition home or self-care (01) ==
LOC: ER 13:09
DX: H00.014 Hordeolum externum left upper eyelid (principal); Z79.899 Other long term (current) drug therapy; Z86.14 Personal history of Methicillin resistant Staphylococcus aureus infection; Z72.89 Other problems related to lifestyle; Z56.0 Unemployment, unspecified
CPT/HCPCS: 99283

== ENCOUNTER 2025-02-28 12:15 | Emergency (ER) | payer MEDICAID ==
[~2025-02-28] VITALS: Ht 157.5 cm; Wt 43.8 kg
[~2025-02-28 12:15] MED LIST changes: +iohexol 300mg/ml 100ml inj. ONE
[2025-02-28 13:00] LABS: LEUKOCYTE ESTERASE ,URINE NEGATIVE (Neg); NITRITES, URINE NEGATIVE (Neg); OCCULT BLOOD,URINE NEGATIVE (Neg)
[2025-02-28 13:01] LABS: URINE HCG NEGATIVE (NEG)
[2025-02-28 13:02] LABS: UA COLLECTION TYPE CLN CATCH MIDSTREAM
--- NOTE | 2025-02-28 15:22 | Physician Documentation ---
History of Present Illness Chief Complaint: Abdominal Pain Stated Complaint: BODY ACHES Time Seen by MD: 14:56 Primary Medical Doctor: [facility] Source: patient Mode of Arrival: POV, Ambulatory Exam Limitations: no limitations HPI Patient no known medical history. Not on medications. Presents with abdominal pain over the past two weeks. She complains of pressure over her ovaries and pain worsening with intercourse. States she feels something hard moving around in there especially during sexual activity. Denies nausea, vomiting, diarrhea. Denies constipation. Last menstrual cycle was about two weeks ago. Yesterday, developed a fever of 100.7 F. complaining of a head cold onset yesterday with b ana aches, cough, sore throat. Reports sick contact yesterday. She states history of STI in the past. She has had chlamydia twice and last STI test was one year ago. She has history of drug abuse. Was using methamphetamine. 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 Last IV drug abuse was at age 24. Medication Reconciliation Allergies: Coded Allergies: No Known Allergies (Unverified , 02/28/25) Scheduled Methocarbamol (Methocarbamol), 1 TAB PO Q8H Neomy Sulf/Polymyx B Sulf/Hc (Cortisporin Otic Solution), 4 DROP RIGHT EAR Q6H Miscellaneous Medications Home Med List (No Home Medications), (Reported) Past Medical History Past Medical History: *ENT*, Arrhythmia (States history of palpitations), Cellulitis, MRSA Abscess Past Surgical History: no surgical history Smoking Status: Never smoker Alcohol Use: Sober Drug Use: none, methamphetamine (History of meth but none currently for the past 72 hours) Lives with: S/O Lives In: Home Occupation: unemployed Review of Systems Constitutional: Reports: chills, fever, malaise Eyes: Reports: no symptoms reported ENT: Reports: throat pain; Denies: ear pain, nose pain Respiratory: Reports: cough; Denies: orthopnea, shortness of breath Cardiovascular: Reports: palpitations (Intermittent, chronic); Denies: chest pain, lightheadedness, syncope, edema Gastrointestinal: Denies: nausea, vomiting, diarrhea, constipated Female Genitalia: Reports: vaginal pain, pelvic pain; Denies: abnormal bleeding, Neurological: Denies: speech problem, headache, dizziness, fainting Musculoskeletal: Denies: pain, swelling, back pain Integumentary: Reports: no symptoms reported Allergic/Immunologic: Reports: no symptoms reported Hematologic/Lymphatic: Reports: no symptoms reported Endocrine: Reports: no symptoms reported Psychiatric: Reports: no symptoms reported Physical Exam Vital Signs: RN Vital Signs have been reviewed: Yes, Temperature: 97.8, Source: Oral, Heart Rate: 105, Respiratory Rate: 18, BP: 117/83, Pulse Oximetry: 100, Weight: 43.800 Oxygen Flow Rate: 0 Pulse Oximetry Reflects: adequate oxygenation Physical Exam General: Awake, alert, oriented. No apparent distress NT: Normocephalic. Trachea midline. Oropharynx without erythema. No cobblestoning of the posterior pharynx. No cervical lymphadenopathy Respiratory: Lungs are clear to auscultation bilaterally. No respiratory distress. Chest: Normal shape and size. No accessory muscle use. Cardiovascular: Regular rate and rhythm. S1-S2. No murmur, gallop, rub. Gastrointestinal: Abdomen is soft. Bowel sounds present. With palpation in the suprapubic region and bilateral lower quadrants Neurologic: Alert and oriented x4. Nonfocal Psychiatric: Normal mood and affect. Skin: Normal color. Warm and dry. Progress Progress Note 1615: Pelvic exam was performed with RN outside sales professional. External genitalia is normal. Cervix is without erythema. There is adnexal tenderness. There is white watery consistency discharge present 1855: Please scan results reviewed with patient. Concerning for mass. Discussed with supervising physician now Dr. Yu. As recommended we will perform a pelvic ultrasound. This is she is comfortable currently. Agreeable to the plan of care. Results/Orders Results/Orders Vital Signs 02/28/25 02/28/25 02/28/25 12:28 14:52 14:52 Temp 97.8 Pulse 76 105 Resp 18 18 18 B/P (MAP) 138/72 117/83 (94) Pulse Ox 100 100 O2 Flow Rate 0 0 Laboratory Tests Test 02/28/25 12:34 Urine Specimen Description Cln catch midstream Urine Color Yellow Urine Clarity Clear Urine pH 6.0 Urine Specific [place] 1.020 Urine Protein Negative Urine Glucose (UA) Negative Urine Ketones Negative Urine Occult Blood Negative Urine Nitrite Negative Urine Bilirubin Negative Urine Urobilinogen 1.0 Urine Leukocyte Esterase Negative Urine Culture Indicated Not ind Volume Urine Centrifuged 10 ml Urine HCG, Qualitative Negative Urine Comment EKG/XRAY/CT/US/VASC/MRI CT : Interpreted By: radiologist CT: abdomen/pelvis With Contrast?: Yes Impression [facility] [place], [place] - [address] CAT SCAN Patient: MARISOL DIAZ Medical Record: [id number] [facility] : 1985, Age: 39 Sex: Female Location: ER Patient Status: [facility] ER Service Date/Time: 02/28/251717 Ordering Physician: ROBI BARAHONA ANALYSIS ENGINEER Exam: CT ABDOMEN PELVIS EXAM: CT CT ABDOMEN PELVIS W/ IV CONTRAST HISTORY: pelvic pain TECHNIQUE: Volumetric multidetector CT images of the abdomen and pelvis were obtained after the administration of intravenous contrast. All CT scans at this facility use dose modulation, iterative reconstruction, and/or weight based dosing when appropriate to reduce radiation dose to as low as reasonably achievable. COMPARISON: None FINDINGS: [LOWER CHEST]: The partially visualized lung bases are clear without a pleural effusion. [LIVER]: Normal hepatic size without suspicious focal lesion. [GALLBLADDER AND BILIARY TREE]: No cholelithiasis. [SPLEEN]: Unremarkable. [PANCREAS]: Unremarkable. [ADRENAL GLANDS]: Unremarkable [KIDNEYS]: No hydronephrosis. No nephroureterolithiasis. [BLADDER]: Mass effect along the superior aspect of the bladder [REPRODUCTIVE ORGANS]: Significant abnormal macrolobulated oval-shaped mass measuring 5.3 x 7.1 by 5.9 cm predominantly projecting anterior to the uterus of indeterminate etiology however may be ovarian origin. Maintain elevated concern for neoplastic disease. [BOWEL/MESENTERY]: Stomach is normal. No CT evidence of bowel obstruction. [ASCITES]: Trace pelvic ascites [LYMPHADENOPATHY]: No pathologically enlarged lymph nodes by CT size criteria [VASCULATURE]: No aneurysmal dilatation. [ABDOMINAL WALL]: Unremarkable. [MUSCULOSKELETAL]: No acute fracture or aggressive focal osseous lesion. IMPRESSION: 1. Significant abnormal macrolobulated oval-shaped mass measuring 5.3 x 7.1 x 5.9 cm predominantly projecting anterior to the uterus of indeterminate etiology however may be ovarian origin. 2. Maintain elevated concern for neoplastic disease. Consider follow up ultrasound of the pelvis. 3. Trace pelvic ascites. Electronically Signed by:MICHAEL GUZMÁN MD Date & Time: 02/28/251839 Dictated by: MICHAEL GUZMÁN MD Dictation date and time: 02/28/251839 Primary Care Provider: NO PRIMARY CARE PROVIDER cc: ROBI BARAHONA NP ~ Ultrasound : Interpreted By: radiologist Ultrasound of: pelvis Impression [address] [address] ULTRASOUND Patient: MARISOL DIAZ Medical Record: [id number] [facility] : 1985, Age: 39 Sex: Female Location: ER Patient Status: REG ER Service Date/Time: 02/28/251852 Ordering Physician: NGA YU DO Exam: ULTRASOUND PELVIS W/ORWO DPLX EXAM: US ULTRASOUND PELVIS W/ORWO DPLX HISTORY: adnexal mass COMPARISON: CT CT ABDOMEN PELVIS W/ IV CONTRAST on DOS: 02/28/25 TECHNIQUE: Transabdominal and transvaginal imaging was utilized. Grayscale and color doppler evaluation. Images were stored in the patient's permanent medical record. FINDINGS: UTERUS: 10.3 x 5.1 x 7 cm. Endometrial stripe: 0.2 cm. RIGHT OVARY: 3.2 x 2.4 x 2.2 cm.Normal vascularity. No suspicious masses or cysts. LEFT OVARY: 3.4 x 3.8 x 2.5 cm. Normal vascularity. No suspicious masses or cysts. OTHER: No free fluid is identified. Mass in the lower anterior abdominal cavity anterior superior to the uterus with significant posterior acoustic shadowing, incompletely characterized a proximally measuring 9.5 x 6 cm. IMPRESSION: 1. Significant shadowing on ultrasound of the mass in question superior to the uterus. 2. Consider gynecology consultation and possible nonemergent MRI of the pelvis with and without contrast Electronically Signed by:MICHAEL GUZMÁN MD Date & Time: 02/28/251933 Dictated by: MICHAEL GUZMÁN MD Dictation date and time: 02/28/251933 Primary Care Provider: NO PRIMARY CARE PROVIDER cc: NGA YU DO ~ Medical Decision Making Additional information obtaine: family, N/A Findings Presents secondary to pelvic pain. On exam she has pain with palpation over the pelvic region that is somewhat generalized. Test was negative. There is low clinical suspicion for given this. Pelvic exam was performed. There was no erythema. There was increased white, watery discharge. Otherwise, cervical os was normal. She denied high-risk sexual activity and has been with the same sexual partner for the past two years. He states history of chlamydia in the past. Further risk factors include methamphetamine use. She has been sober for the past 72 days. Given her risk factors she was tested for gonorrhea and chlamydia as well as treated. She was tested with rapid syphilis test which was negative. Given her significant pain a CT of the abdomen pelvis was performed. There was noted to be a mass either uterine or from ovarian nature suspicious for neoplasm. She then underwent an ultrasound of the pelvis which not show torsion. Concern for abscess or other intra-abdominal pathology which was not seen on her imaging studies. Concern for cancer was reviewed with the patient she was highly encouraged to follow up with her primary care provider. It was discussed with her that she needs further imaging and possibly Gynecology. She verbalized understanding of these instructions. The case was discussed with the attending physician, Flaquito palomo then Gigi. The plan of care, diagnostic evaluation and medical decision making were discussed. The attending physician was available for consultation, where the diagnostic findings as well as the eventual disposition. Differential Dx:Considerations: Other Departure Time of Disposition: 19:49 Disposition: 01 HOME / SELF CARE / HOMELESS Impression: Primary Impression: Pelvic mass Additional Impressions: Pelvic pain Possible exposure to STD Condition: Stable Discharge Instructions: Pelvic Pain, Female Additional Instructions: CT scan showed possible pelvic mass that may be consistent with cancer. The ultrasound also showed this mass. The radiologist is recommending outpatient follow up. You will likely need an MRI for further differentiation. Recommend that you follow up with your primary care provider as soon as possible. Preferably this should be done within one week of emergency department discharge. You will likely need to see a spinner box as well. Treatment for possible sexually transmitted infection vaginal pain and discharge. Gonorrhea and chlamydia lab is a send out. Your syphilis test was negative. Follow up with primary care provider as described above. Return for new or worsening symptoms. Referrals: NO PRIMARY CARE PROVIDER (PCP) Education Educated: Patient Educated regarding: diagnosis, treatment, need for follow up Signature Scribe Signature: No scribe Attestation: The note accurately reflects work and decisions made by me.Robi Barahona - BOB 02/28/25 22:34 This note was created with the assistance of voice recognition software whereby errors in grammar, syntax, and/or spelling may have occurred despite active proofreading efforts by the author. Please do not hesitate to contact the provider for clarification or for questions regarding the content of this docu ment. ROBI BARAHONA NP Feb 28, 2025 15:22
[2025-02-28 16:01] LABS: MEAN PLATELET VOLUME 7.1 FL (7.4-10.4); RED CELL DISTRIBUTION WIDTH 14.3 % (11.5-14.5)
[2025-02-28 16:12] LABS: CREATININE 0.94 MG/DL (0.40-0.90); TOTAL CARBON DIOXIDE 28.2 MMOL/L (24-32); eCRCL 55 ML/MIN; eGFR 66 ML/MIN
[2025-02-28 16:25] LABS: SYPHILIS SCREENING TEST POC NEGATIVE (Negative)
[2025-02-28] MEDS: normal saline 1000ML IV soln IVB ONE (16:36)
--- NOTE | 2025-02-28 18:43 | RADIOLOGY REPORT ---
EXAM: CT CT ABDOMEN PELVIS W/ IV CONTRAST HISTORY: pelvic pain TECHNIQUE: Volumetric multidetector CT images of the abdomen and pelvis were obtained after the administration of intravenous contrast. All CT scans at this facility use dose modulation, iterative reconstruction, and/or weight based dosing when appropriate to reduce radiation dose to as low as reasonably achievable. COMPARISON: None FINDINGS: [LOWER CHEST]: The partially visualized lung bases are clear without a pleural effusion. [LIVER]: Normal hepatic size without suspicious focal lesion. [GALLBLADDER AND BILIARY TREE]: No cholelithiasis. [SPLEEN]: Unremarkable. [PANCREAS]: Unremarkable. [ADRENAL GLANDS]: Unremarkable [KIDNEYS]: No hydronephrosis. No nephroureterolithiasis. [BLADDER]: Mass effect along the superior aspect of the bladder [REPRODUCTIVE ORGANS]: Significant abnormal macrolobulated oval-shaped mass measuring 5.3 x 7.1 by 5.9 cm predominantly projecting anterior to the uterus of indeterminate etiology however may be ovarian origin. Maintain elevated concern for neoplastic disease. [BOWEL/MESENTERY]: Stomach is normal. No CT evidence of bowel obstruction. [ASCITES]: Trace pelvic ascites [LYMPHADENOPATHY]: No pathologically enlarged lymph nodes by CT size criteria [VASCULATURE]: No aneurysmal dilatation. [ABDOMINAL WALL]: Unremarkable. [MUSCULOSKELETAL]: No acute fracture or aggressive focal osseous lesion. IMPRESSION: 1. Significant abnormal macrolobulated oval-shaped mass measuring 5.3 x 7.1 x 5.9 cm predominantly projecting anterior to the uterus of indeterminate etiology however may be ovarian origin. 2. Maintain elevated concern for neoplastic disease. Consider follow up ultrasound of the pelvis. 3. Trace pelvic ascites.
--- NOTE | 2025-02-28 19:37 | RADIOLOGY REPORT ---
EXAM: US ULTRASOUND PELVIS W/ORWO DPLX HISTORY: adnexal mass COMPARISON: CT CT ABDOMEN PELVIS W/ IV CONTRAST on DOS: 02/28/25 TECHNIQUE: Transabdominal and transvaginal imaging was utilized. Grayscale and color doppler evaluation. Images were stored in the patient's permanent medical record. FINDINGS: UTERUS: 10.3 x 5.1 x 7 cm. Endometrial stripe: 0.2 cm. RIGHT OVARY: 3.2 x 2.4 x 2.2 cm.Normal vascularity. No suspicious masses or cysts. LEFT OVARY: 3.4 x 3.8 x 2.5 cm. Normal vascularity. No suspicious masses or cysts. OTHER: No free fluid is identified. Mass in the lower anterior abdominal cavity anterior superior to the uterus with significant posterior acoustic shadowing, incompletely characterized a proximally measuring 9.5 x 6 cm. IMPRESSION: 1. Significant shadowing on ultrasound of the mass in question superior to the uterus. 2. Consider gynecology consultation and possible nonemergent MRI of the pelvis with and without contrast
[2025-02-28] MEDS: CefTRIAXone 1000mg IM Kit (w/lidocaine diluent) IM ONE (20:06)
[2025-02-28 21:06] VITALS: BP 134/80; PULSE 70; RESP 18; TEMP 98.1; O2SAT 99
== END 2025-02-28 21:08 | disposition home or self-care (01) ==
LOC: ER 12:15
DX: R19.00 Intra-abdominal and pelvic swelling, mass and lump, unspecified site (principal); R10.20 Pelvic and perineal pain unspecified side; F19.11 Other psychoactive substance abuse, in remission; F15.90 Other stimulant use, unspecified, uncomplicated; Z86.14 Personal history of Methicillin resistant Staphylococcus aureus infection; Z79.899 Other long term (current) drug therapy; Z56.0 Unemployment, unspecified
CPT/HCPCS: 36415; 74177; 76856; 80053; 81003; 81025; 83690; 85025; 85730; 87210; 87491; 87591; 93976; 96360; 96372; 99285; J0696; J7030; Q9967